=== PATIENT | male | born 1970 | race Caucasian/White ===

== ENCOUNTER → 2021-03-04 | Outpatient (CLI) | payer OTHER ==
[2021-03-04 12:30] LABS: BUN/CREATININE RATIO 20 (0-10)
[2021-03-05 08:10] LABS: CREATININE, URINE 56.7 mg/dL (Not Estab.)
== END ==
LOC: LAB 11:08
PROVIDERS: Family Medicine
DX: E11.65 Type 2 diabetes mellitus with hyperglycemia (principal); I10 Essential (primary) hypertension; Z12.5 Encounter for screening for malignant neoplasm of prostate
CPT/HCPCS: 36415; 80053; 80061; 82043; 82570; 83036; 84153